=== PATIENT | male | born 1990 | race Caucasian/White ===

== ENCOUNTER 2022-05-08 11:13 | Emergency (ER) | payer OTHER, SELFPAY ==
[2022-05-08 11:24] VITALS: BP 138/77; PULSE 72; RESP 18; TEMP 36.8; O2SAT 97; BMI 32.5
--- NOTE | 2022-05-08 11:34 | ED_ITS ---
HPI - Ear Problem General Chief complaint: Ear Stated complaint: ear pain, soar throat Time Seen by Provider: 05/08/22 11:29 Source: patient Mode of arrival: Ambulatory History of Present Illness HPI Narrative: 31-year-old male daily smoker with noncontributory medical history presents with a chief complaint of severe left ear pain and some mild throat pain. He denies any runny nose, sneezing or cough. He has no chest pain or shortness of breath. He is had no nausea, vomiting or diarrhea. He denies any fever. Related Data Previous Rx's Medication Instructions Recorded amoxicillin 875 mg tablet 875 mg PO BID #14 tabs 05/08/22 hydrocodone 5 mg-acetaminophen 325 1 tab PO Q4-6H PRN pain #10 tabs 05/08/22 mg tablet Review of Systems Review of Systems Narrative: GENERAL: See HPI HEENT: See HPI RESPIRATORY: See HPI CARDIOVASCULAR: Denies chest pain, palpitations, orthopnea, edema, GASTROINTESTINAL: Denies nausea, vomiting, abdominal pain, diarrhea, constipation, melena. : Denies dysuria, frequency, incontinence, hematuria, urinary retention. MUSCULOSKELETAL: denies weakness, joint pain, or bony pain SKIN: Denies rash, skin lesions, or other NEUROLOGIC: Denies weakness, headache, numbness, change in speech, confusion, seizures, incoordination. PSYCHIATRIC: No concerning psychosocial issues. 12 point review of systems is negative except for those stated above Patient History Social History Smoking Status: Current every day smoker Smoking Status: Current every day smoker alcohol intake frequency: holidays/special occasions only Substance Use Type: does not use Exam Narrative Exam Narrative: GEN: AOx3 and in mild distress EYES: Pupils are equal, round, and reactive to light and accommodation. Extraoccular muscles are intact bilaterally. There is no subconjunctival hemorrhage or exudate. ENT: Right TM flat, clear with normal landmarks. Left TM bulging, opacified with erythema. No evidence of rupture. Minimal postpharyngeal drainage, no significant erythema, swelling or exudate. No significant anterior lymphadenopathy. Airway clear CHEST: Lungs are clear to auscultation bilaterally and free of wheezes, rales, or rhonchi. Heart rate is regular rhythm, there are no murmurs, clicks, rubs, or gallops. There is no chest wall tenderness. ABD: Abdomen is soft and nontender. There is no guarding or rebound. Bowel sounds are normal in all 4 quadrants. There is no mass or organomegaly. EXT: Full painless ROM of all extremities with no loss of sensation or strength. SKIN: Warm, pink, and dry. No erythema or rash Initial Vital Signs Initial Vital Signs: Vital Signs Temperature 98.2 F 05/08/22 11:24 Pulse Rate 72 05/08/22 11:24 Respiratory Rate 18 05/08/22 11:24 Blood Pressure 138/77 05/08/22 11:24 Pulse Oximetry 97 05/08/22 11:24 Oxygen Delivery Method 05/08/22 11:24 Course Vital Signs Vital signs: Vital Signs - 8 hr 05/08/22 11:24 Temperature 98.2 F Pulse Rate 72 Respiratory Rate 18 Blood Pressure 138/77 Pulse Oximetry 97 Oxygen Delivery Method Room Air Discharge Plan Departure Patient Disposition: Home Clinical Impression: Otitis media Instructions: Middle Ear Infection Activity Restrictions/Additional Instructions: *You have been diagnosed with [acute left otitis media] *What to do: *Please considered the routine use of ibuprofen for the next few days to help with pain, fever and inflammation. Also, as we discussed [id number] medications that include a decongestant will likely help, particularly prior to your flight tomorrow [x ] New medication prescriptions sent to your pharmacy: [[facility] in [place] ] [ ] New medication written as a paper prescription [ ] No new medications given *Please follow up with your primary care provider in 2-3 days, call for an appointment. Let them know you were seen in the Emergency Department and that we ask that you be seen in follow up. We will electronically transmit a record of today's note if your PCP is in our system * as we discussed, you have a significant amount of bulging of your tympanic membrane and you are at an increased risk of rupture, if you developed significantly worsening pain followed by drainage of blood or pus from your ear this would suggest it likely ruptured. It is quite normal for the pain to improved dramatically at this point. If this does happen it is very important that you follow-up with [facility], their contact info is listed below, please call them and let them know you were seen in the emergency department and we would like you to be seen in follow-up *Return to Emergency Department if you should have any new, worsening or concerning symptoms, such as [fever greater than 101 F, shaking chills, worsening pain, persistent vomiting or other bothersome symptoms] You have been prescribed a short course of narcotic medications. These are potentially dangerous and addictive medications that should be used carefully. While on these medications you cannot drive or operate heavy machinery. Additionally, you cannot sign legal documents or perform any duties such as this. 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 Please understand that we cannot provide further refills of narcotics or controlled substances through the ED and your pain management will need to be through your Primary Care Provider Prescriptions: New hydrocodone-acetaminophen 5-325 mg tablet 1 tab PO Q4-6H PRN (Reason: pain) Qty: 10 0RF amoxicillin 875 mg tablet 875 mg PO BID Qty: 14 0RF Referrals: Thomas Parr MD [Physician] -
== END 2022-05-08 11:35 | disposition home or self-care (01) ==
PROVIDERS: Emergency Provider Emergency Medicine
DX: H66.92 Otitis media, unspecified, left ear (principal)
CPT/HCPCS: 99281

== ENCOUNTER 2022-08-14 09:08 | Emergency (ER) | payer OTHER, SELFPAY ==
[2022-08-14 09:19] VITALS: BP 146/92; PULSE 78; RESP 16; TEMP 37.2; O2SAT 99; BMI 33.2
--- NOTE | 2022-08-14 09:25 | ED.EAR ---
HPI - Ear Problem General Chief complaint: Ear Stated complaint: possible ear infection Time Seen by Provider: 08/14/22 09:18 Source: patient Mode of arrival: Family Vehicle History of Present Illness HPI Narrative: Patient is a healthy 32-year-old male who presents with left ear pain. He says he is had some difficulty with popping ears for about the last month he feels like his ears are full. No significant nasal congestion or sore throat. He is not had any fever or chills. He took Sudafed without any relief. Related Data Home Medications Medication Instructions Recorded Confirmed No Known Home Medications 08/14/22 08/14/22 Allergies Allergy/AdvReac Type Severity Reaction Status Date / Time No Known Drug Allergies Allergy Verified 08/14/22 09:24 Review of Systems Review of Systems ROS Unobtainable: All systems reviewed & are unremarkable except as noted in HPI and below Patient History Social History Smoking Status: Current every day smoker Smoking Status: Current every day smoker tobacco type: cigarettes alcohol intake frequency: holidays/special occasions only Substance Use Type: does not use Exam Initial Vital Signs Initial Vital Signs: Vital Signs Temperature 98.9 F 08/14/22 09:19 Pulse Rate 78 08/14/22 09:19 Respiratory Rate 16 08/14/22 09:19 Blood Pressure 146/92 H 08/14/22 09:19 Pulse Oximetry 99 08/14/22 09:19 Oxygen Delivery Method Room Air 08/14/22 09:19 GENERAL: Well-appearing, well-nourished and in no acute distress. EARS: Both right and left ear have normal external exam normal canal no erythema no fluid behind membrane tympanic membrane visualized bilaterally CARDIOVASCULAR: peripheral pulses in tact, cap refill <2 sec RESPIRATORY: No respiratory distress, speaks in full sentences without difficulty EXTREMITIES: Normal range of motion, no clubbing or edema. Neurovascularly intact NEUROLOGICAL: Cranial nerves II through XII grossly intact. Normal gait and speech. SKIN: Warm, dry, no petechiae, no rashes or lesions. Course Vital Signs Vital signs: Vital Signs - 8 hr 08/14/22 09:19 Temperature 98.9 F Pulse Rate 78 Respiratory Rate 16 Blood Pressure 146/92 H Pulse Oximetry 99 Oxygen Delivery Method Room Air Medical Decision Making [facility] Narrative Medical decision making narrative: Patient has been having ear pain and popping ongoing for the last month. No sign of infection he is not febrile. Recommended allergy medicine or Sudafed which he has not had much relief with. No need for antibiotics may need ENT evaluation if this continues. Discharge Plan Departure Patient Disposition: Home Clinical Impression: Earache Instructions: DI for Ear Pain-Adult Activity Restrictions/Additional Instructions: *You have been diagnosed with ear pain *What to do: At this time no infection no antibiotics. May try allergy medication daily unfortunately no good answer. You may need to go to a specialist if discontinue *Continue to take medications as directed *Follow up with your primary care provider in 2-3 days or call [phone] Parr *Return to ER if you should have increasing pain fever drainage [or] any new, worsening or concerning symptoms Prescriptions: No Action No Known Home Medications Referrals: Thomas Parr MD [Physician] - Stand Alone Forms: Patient Portal/API
== END 2022-08-14 09:29 | disposition home or self-care (01) ==
PROVIDERS: Emergency Provider Emergency Medicine
DX: H92.02 Otalgia, left ear (principal)
CPT/HCPCS: 99281

== ENCOUNTER 2023-04-11 03:37 | Emergency (ER) | payer OTHER, SELFPAY ==
--- NOTE | 2023-04-11 03:41 | ED_ITS ---
HPI - General Adult General Chief complaint: Extremity Problem,Nontraumatic Stated complaint: rt should blade feels like its being stabbed Time Seen by Provider: 04/11/23 03:40 History of Present Illness HPI narrative: 32-year-old gentleman with no significant medical history he is a smoker with a chronic smoker's cough presents with a week to week and a half of right-sided subscapular pain worse with moving, deep breathing an unchanged with eating, fasting. He has been taking appropriate doses of both ibuprofen and Tylenol and this evening found that the pain woke him up a number of times this evening. He does not report fevers recent viral syndrome, abdominal pain, nausea or vomiting. He is having no left-sided chest pain or palpitations. He describes no dizziness. He does not note that he had been doing any particularly new activities or anything that may have caused any muscle tenderness or particularly weakness Related Data Previous Rx's Medication Instructions Recorded prednisone 20 mg tablet 20 mg PO DAILY #5 tabs 04/11/23 Allergies Allergy/AdvReac Type Severity Reaction Status Date / Time No Known Drug Allergies Allergy Verified 08/14/22 09:24 Review of Systems Review of Systems Narrative: Pertinent positive and negative findings as per HPI Patient History Social History Smoking Status: Current every day smoker Smoking Status: Current every day smoker tobacco type: cigarettes alcohol intake frequency: holidays/special occasions only Substance Use Type: does not use Exam Initial Vital Signs Initial Vital Signs: Vital Signs Temperature 98.3 F 04/11/23 03:48 Pulse Rate 82 04/11/23 03:48 Respiratory Rate 20 04/11/23 03:48 Blood Pressure 141/85 H 04/11/23 03:48 Pulse Oximetry 98 04/11/23 03:48 Oxygen Delivery Method Room Air 04/11/23 03:48 General: Healthy appearing, in no acute distress. Able to give a complete and coherent history. Well-nourished well-developed HEENT: Moist mucous membranes, normal sclera with reactive pupils, Respiratory: Lungs are clear to auscultation, no wheezing no rales no rhonchi. Full and symmetrical air movement Chest: He has no reproducible tenderness with manipulation of the right scapula or palpation along the anterior-posterior chest wall. No tenderness along sternal borders Cardiac: Regular rate and rhythm no murmurs no bruits Abdomen: Soft, nontender, no reproducible pain with abdominal palpation, good bowel tones, no flank pain Skin: Warm and dry, no rashes Neurologic: Grossly neurologically intact with no obvious asymmetries or abnormalities Extremities: No trauma, well perfused Psych: Cooperative, appropriate insight and affect Course Orders Ordered: ED Orders 04/11/23 03:47 XR chest 2V Stat Vital Signs Vital signs: Vital Signs - 8 hr 04/11/23 03:48 Temperature 98.3 F Pulse Rate 82 Respiratory Rate 20 Blood Pressure 141/85 H Pulse Oximetry 98 Oxygen Delivery Method Room Air Medical Decision Making MDM Narrative Medical decision making narrative: CC: Right-sided subscapular pain times 1-1.5 weeks Complicating co-morbidities: Smoking Data collected from: patient, Differential considered: Pneumonia, pneumothorax, pleuritic chest pain, musculoskeletal chest pain Exam documented above, pertinent findings include: Benign exam with no reproducible chest pain with palpation in the thorax or abdomen. No skin changes. Imaging studies independently reviewed: Chest x-ray shows no acute findings Treatments: 60 mg of oral prednisone Discussion: 32-year-old gentleman who presents with a week to week and a half of musculoskeletal type chest pain centered under his right scapula worse with movement twisting and turning. Coughing and sneezing do make it worse. There is no left-sided chest pain, no subcutaneous air, no no rash and no reproducible tenderness with palpation. Chest x-ray does not suggest spontaneous pneumothorax, tumor, mass, consolidated findings are pneumonia, no widened mediastinum. At this point with pain very likely musculoskeletal there is no additional indication for lab work or further imaging studies. I do not suspect pulmonary embolism in the absence of hypoxia and tachycardia. Patient had taken 800 mg of ibuprofen and 1 g of Tylenol just prior to arrival. He has been taking this fairly regularly. On top of this I do not think that Toradol is going to offer any additional benefit. He declined any narcotics for immediate use or home use. We talked about a brief course of steroids as an anti- inflammatory. He is given 60 mg of prednisone in the ER and will have him take an additional 5 days of 20 mg of prednisone. Reviewed reasons to return to the emergency department, questions are answered and he is safe for discharge Discharge Plan Departure Patient Disposition: Home Clinical Impression: Chest pain, musculoskeletal Instructions: DI for Musculoskeletal Pain Activity Restrictions/Additional Instructions: Thank you for coming in today Based on the description of your pain, your physical exam and a very normal chest x-ray I suspect that you are experiencing musculoskeletal pain that should improve within the next few days. Using 400 mg of ibuprofen (2 [id number] pills) and 1 Tylenol every 6 hours can be very helpful in controlling pain. I am going to suggest 5 days of prednisone as a anti-inflammatory treatment. You are given 1st dose in the emergency department. I am not finding any suggestion of a collapsed lung, a tumor or mass, pneumonia, shingles, heart attack or heart attack like syndrome, abdominal complications that are causing chest pain. If you find that you are developing new symptoms, develop a fever the pain worsens it would be appropriate to return to the ER Prescriptions: New prednisone 20 mg tablet 20 mg PO DAILY Qty: 5 0RF Stand Alone Forms: Patient Portal/API
--- NOTE | 2023-04-11 03:47 | DI.RAD.S_ITS ---
PROCEDURE: XR CHEST 2V INDICATIONS: right mid chest pain TECHNIQUE: 2 views of the chest were acquired. COMPARISON: None. FINDINGS: Surgical changes and devices: None. Lungs and pleura: Lungs are clear. No pleural effusions or pneumothorax. Mediastinum: Mediastinal contours are normal. Heart size is normal. Bones and chest wall: No suspicious bony abnormalities. Soft tissues appear unremarkable. IMPRESSION: No acute cardiopulmonary abnormality. This report is concordant with the overnight preliminary interpretation. Dictated by: Demarcus Kemp M.D. on 04/11/2023 at 7:57 Approved by: Demarcus Kemp M.D. on 04/11/2023 at 7:58
[2023-04-11 03:48] VITALS: BP 141/85; PULSE 82; RESP 20; TEMP 36.8; O2SAT 98; BMI 34.0
[2023-04-11] MEDS: predniSONE 20 MG TABLET 60 MG PO (05:17)
[2023-04-11 05:21] VITALS: BP 138/76; PULSE 74; RESP 18; TEMP 36.6; O2SAT 98
== END 2023-04-11 05:22 | disposition home or self-care (01) ==
PROVIDERS: Emergency Provider Emergency Medicine
DX: R07.89 Other chest pain (principal)
CPT/HCPCS: 71046; 99283

== ENCOUNTER 2023-09-21 10:01 | Emergency (ER) | payer OTHER, SELFPAY ==
[2023-09-21 10:14] VITALS: BP 134/78; PULSE 69; RESP 14; TEMP 36.2; O2SAT 98; BMI 33.2
--- NOTE | 2023-09-21 10:16 | DI.RAD.S_ITS ---
PROCEDURE: XR FOOT RT MIN 3V INDICATIONS: foot/toe injury TECHNIQUE: 3 views of the foot were acquired. COMPARISON: None. FINDINGS: Bones: Mildly displaced fracture at the base of the 1st distal phalanx with intra-articular extension. No suspicious bony lesions. Soft tissues: No tibiotalar joint effusion. Achilles tendon appears normal. IMPRESSION: Mildly displaced fracture at the base of the 1st distal phalanx with intra-articular extension. Dictated by: Rodo Ayoub M.D. on 09/21/2023 at 11:05 Approved by: Rodo Ayoub M.D. on 09/21/2023 at 11:06
--- NOTE | 2023-09-21 12:13 | ED.LOWEXIN ---
HPI - Extremity Injury (Lower) General Chief Complaint: Extremity Injury, Lower Stated Complaint: poss broken big toe or top of foot Time Seen by Provider: 09/21/23 12:05 Source: patient Mode of arrival: Ambulatory History of Present Illness HPI Narrative: Patient here for right great toe pain/injury. He bumped piece of wood on the playground yesterday playing with his kids. Has been limping since the injury. Denies any other injuries. Shoe and sock removed. Related Data Previous Rx's Medication Instructions Recorded prednisone 20 mg tablet 20 mg PO DAILY #5 tabs 04/11/23 Allergies Allergy/AdvReac Type Severity Reaction Status Date / Time No Known Drug Allergies Allergy Verified 09/21/23 10:14 Review of Systems Review of Systems Narrative: GENERAL: negative chills, fatigue, malaise, fever, sweats. HEENT: negative sinus pain, ear pain, sore throat RESPIRATORY: negative dyspnea, cough CARDIOVASCULAR: negative chest pain, palpitations GASTROINTESTINAL: negative nausea, vomiting, abdominal pain : negative dysuria, frequency, hematuria MUSCULOSKELETAL: Positive muscle or bony pain SKIN: negative rash, skin lesions NEUROLOGIC: negative weakness, numbness ROS Unobtainable: All systems reviewed & are unremarkable except as noted in HPI and below Patient History Social History Smoking Status: Current every day smoker Smoking Status: Current every day smoker tobacco type: cigarettes alcohol intake frequency: holidays/special occasions only Substance Use Type: does not use Exam Narrative Exam Narrative: GENERAL: in no distress, not toxic not dyspneic HEAD: Normocephalic. EYES: Pupils equal round EXTREMITIES: No gross deformities. Examination right foot. There is bruising to the interphalangeal joint dorsally. Skin is intact. No subungual hematoma. Tender to touch. Brisk cap refills. Strong pedal pulse. Remaining exam of the foot warm soft and pink. Nontender ankle NEURO: AOx4. SKIN: Warm and dry PSYCH: Not anxious, is cooperative Initial Vital Signs Initial Vital Signs: Vital Signs Temperature 97.1 F L 09/21/23 10:14 Pulse Rate 69 09/21/23 10:14 Respiratory Rate 14 09/21/23 10:14 Blood Pressure 134/78 09/21/23 10:14 Pulse Oximetry 98 09/21/23 10:14 Oxygen Delivery Method Room Air 09/21/23 10:14 Course Orders Ordered: Discontinued Medications Ibuprofen (Ibuprofen 400 Mg Tablet) 800 mg PO NOW ONE Stop: 09/21/23 12:14 Last Admin: 09/21/23 12:22 Dose: 800 mg Documented By: ARIANNA Vital Signs Vital signs: Vital Signs - 8 hr 09/21/23 10:14 Temperature 97.1 F L Pulse Rate 69 Respiratory Rate 14 Blood Pressure 134/78 Pulse Oximetry 98 Oxygen Delivery Method Room Air [facility] - Extremity Injury (Lower) [facility] Narrative Medical decision making narrative: Patient here for right great toe pain/injury. He bumped piece of wood on the playground yesterday playing with his kids. Has been limping since the injury. Denies any other injuries. Shoe and sock removed. After history and exam x-ray right foot ibuprofen [facility] Medical records reviewed: No recent visit for this complaint Differential considered: Includes but not limited to toe fracture toe dislocation toe sprain Imaging studies independently reviewed: X-ray right foot fracture of the distal phalanx of the great toe Treatments: Postop shoe crutches ibuprofen Re-evaluations: Reviewed results with patient. Referral for Orthopedics provided. Pain is controlled. Work note provided. Informed patient will need to keep in postop shoe and crutches until office appointment time. Pain is controlled. Return precautions reviewed he desires discharge home Discussion: Appropriate for discharge home. Exam is reassuring. Referral for Orthopedics provided. Pain is controlled. Work note provided. He desires discharge home. Reviewed with patient treatment definitively will be needed to be reviewed with orthopedist Diagnosis: Toe fracture Discharge Plan Departure Patient Disposition: Home Clinical Impression: Closed fracture of toe Qualifiers: Encounter type: initial encounter Toe: great toe Phalanx: distal Fracture alignment: displaced Laterality: right Qualified Code(s): S92.421A - Displaced fracture of distal phalanx of right great toe, initial encounter for closed fracture Instructions: DI for Toe Fracture Activity Restrictions/Additional Instructions: X-rays showed that you do have a broken toe. Please use crutches and provided postop shoe until office appointment time. Work note has been provided for you. Please elevate foot and toe when at rest to reduce swelling. May continue ibuprofen for pain. May use cool pack to the toe 20 minutes at a time as needed for pain and swelling. Return if worse if any questions or concerns Prescriptions: No Action prednisone 20 mg tablet 20 mg PO DAILY Qty: 5 0RF Referrals: Janae Meeks MD [Physician] - Stand Alone Forms: Patient Portal/API, Work Release Note
[2023-09-21] MEDS: IBUPROFEN 400 MG TABLET 800 MG PO (12:22)
[2023-09-21 12:32] VITALS: BP 139/71; PULSE 69; RESP 16; O2SAT 97
== END 2023-09-21 12:32 | disposition home or self-care (01) ==
PROVIDERS: Emergency Provider Emergency Medicine
DX: S92.421A Displaced fracture of distal phalanx of right great toe, initial encounter for closed fracture (principal); W22.8XXA Striking against or struck by other objects, initial encounter
CPT/HCPCS: 73630; 99283

== ENCOUNTER 2024-09-28 09:34 | Emergency (ER) | payer OTHER, SELFPAY ==
[2024-09-28 09:37] VITALS: BP 120/68; PULSE 57; RESP 14; TEMP 36.1; O2SAT 100; BMI 28.8
--- NOTE | 2024-09-28 09:40 | DI.RAD.S_ITS ---
PROCEDURE: XR SHOULDER RT MIN 2V INDICATIONS: shoulder pain TECHNIQUE: 3 views of the shoulder were acquired. COMPARISON: None. FINDINGS: Bones: No fractures or dislocations. No suspicious bony lesions. Visualized ribs appear intact. Soft tissues: No suspicious soft tissue calcifications. IMPRESSION: No visualized acute fracture or dislocation. However, if clinical concern and/or pain persist, short interval imaging followup in 7-10 days is recommended, as occult injury cannot be definitively excluded. Dictated by: Brenda Ortiz M.D. on 09/28/2024 at 11:57 Approved by: Brenda Ortiz M.D. on 09/28/2024 at 11:57
--- NOTE | 2024-09-28 11:31 | ED.EXTPRO ---
HPI - Extremity Problem <Jossy Carpio PA-C - Last Filed: 09/28/24 14:16> General Chief complaint: Extremity Problem,Nontraumatic Stated complaint: Right shoulder pain x 3 days Time Seen by Provider: 09/28/24 11:09 Source: patient Mode of arrival: Ambulatory History of Present Illness HPI Narrative: Mr. Carter is a very pleasant 34-year-old male with no reported past medical history who presents to the emergency department for acute on chronic right shoulder pain x3 days. 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 Describes that he has pain on his right anterior and lateral shoulder and also it is now spreading onto his right scapula and up the right side of the neck. The muscles feel tight. Denies any specific injury but he does work with his arms every day. States that in the past he was prescribed prednisone for this pain which helped immensely. He does have a standing referral to see an orthopedic doctor but is not yet been able to follow up. He denies any neck pain, head pain, arm pain, numbness, tingling, weakness. Pain is exacerbated by abducting the right shoulder and raising the arm above the head but he still does have full range of motion. He took Tylenol this morning which did not help with the pain at all. He takes no prescription medications. He does smoke cigarettes. Related Data Previous Rx's Medication Instructions Recorded prednisone 20 mg tablet 20 mg PO DAILY #5 tabs 04/11/23 lidocaine 5 % topical patch 1 patch topical DAILY #30 ea 09/28/24 (Lidoderm) methocarbamol 500 mg tablet 500 mg PO TID PRN muscle spasm #20 09/28/24 tabs prednisone 20 mg tablet 20 mg PO DAILY 5 days #5 tabs 09/28/24 Allergies Allergy/AdvReac Type Severity Reaction Status Date / Time No Known Drug Allergies Allergy Verified 09/28/24 09:37 Review of Systems <oJssy Carpio PA-C - Last Filed: 09/28/24 14:16> Review of Systems ROS Unobtainable: All systems reviewed & are unremarkable except as noted in HPI and below Patient History <Jossy Carpio PA-C - Last Filed: 09/28/24 14:16> Social History Smoking Status: Current every day smoker Smoking Status: Current every day smoker tobacco type: cigarettes alcohol intake frequency: holidays/special occasions only Exam <JAGUAR Villasenor Last Filed: 09/28/24 14:16> Narrative Exam Narrative: GENERAL: 34 year old patient appears stated age. Well-developed patient, in no acute distress. HEAD: Atraumatic. Normocephalic. NECK: Trachea midline. Cervical ROM intact. No midline cervical tenderness. CARDIOVASCULAR: Regular rate and rhythm. RESPIRATORY: ?Nonlabored respirations. ?Speaking in clear, full sentences. ?Clear to auscultation. Breath sounds equal bilaterally. No wheezes, rales, or rhonchi. ? EXTREMITIES: No tenderness to palpation of right clavicle, shoulder, scapula. There is reproducible pain with abduction of the right shoulder both active and passive in addition to flexion and extension of the right shoulder. Patient does have full range of motion. No deformities. Strength and sensation are intact in the distribution of the median, ulnar, radial nerves bilaterally and there strong radial pulses bilaterally. Negative empty can test bilaterally. BACK: Nontender. NEURO: AOx3. ?Clear speech. ?Moves all 4 extremities appropriately. SKIN: No rash or erythema of visible areas Initial Vital Signs Initial Vital Signs: Vital Signs Temperature 97.0 F L 09/28/24 09:37 Pulse Rate 57 L 09/28/24 09:37 Respiratory Rate 14 09/28/24 09:37 Blood Pressure 120/68 09/28/24 09:37 Pulse Oximetry 100 09/28/24 09:37 Oxygen Delivery Method Room Air 09/28/24 09:37 <Brittnee Carrillo DO - Last Filed: 09/29/24 08:06> Initial Vital Signs Initial Vital Signs: Vital Signs Temperature 97.0 F L 09/28/24 09:37 Pulse Rate 57 L 09/28/24 09:37 Respiratory Rate 14 09/28/24 09:37 Blood Pressure 120/68 09/28/24 09:37 Pulse Oximetry 100 09/28/24 09:37 Oxygen Delivery Method Room Air 09/28/24 09:37 Course <Jossy Carpio PA-C - Last Filed: 09/28/24 14:16> Orders Ordered: Discontinued Medications Ketorolac Tromethamine (Ketorolac 30 Mg/Ml Vial) 30 mg IM NOW ONE Stop: 09/28/24 11:31 Last Admin: 09/28/24 11:40 Dose: 30 mg Documented By: RB Lidocaine (Lidocaine 5% Patch) 1 each TOP NOW ONE Stop: 09/28/24 11:31 Last Admin: 09/28/24 11:40 Dose: 1 each Documented By: RB Prednisone (Prednisone 20 Mg Tablet) 40 mg PO NOW ONE Stop: 09/28/24 11:31 Last Admin: 09/28/24 11:41 Dose: 40 mg Documented By: RB Vital Signs Vital signs: Vital Signs - 8 hr 09/28/24 09:37 09/28/24 12:38 Temperature 97.0 F L 97.8 F Pulse Rate 57 L 52 L Respiratory Rate 14 18 Blood Pressure 120/68 129/62 Pulse Oximetry 100 99 Oxygen Delivery Method Room Air Room Air <Brittnee Carrillo DO - Last Filed: 09/29/24 08:06> Orders Ordered: Discontinued Medications Ketorolac Tromethamine (Ketorolac 30 Mg/Ml Vial) 30 mg IM NOW ONE Stop: 09/28/24 11:31 Last Admin: 09/28/24 11:40 Dose: 30 mg Documented By: RB Lidocaine (Lidocaine 5% Patch) 1 each TOP NOW ONE Stop: 09/28/24 11:31 Last Admin: 09/28/24 11:40 Dose: 1 each Documented By: RB Prednisone (Prednisone 20 Mg Tablet) 40 mg PO NOW ONE Stop: 09/28/24 11:31 Last Admin: 09/28/24 11:41 Dose: 40 mg Documented By: RB Vital Signs Vital signs: Vital Signs - 8 hr 09/28/24 09:37 09/28/24 12:38 Temperature 97.0 F L 97.8 F Pulse Rate 57 L 52 L Respiratory Rate 14 18 Blood Pressure 120/68 129/62 Pulse Oximetry 100 99 Oxygen Delivery Method Room Air Room Air MDM - Extremity (Nontraumatic) <Jossy Carpio PA-C - Last Filed: 09/28/24 14:16> Medical Records Attestation: I reviewed the patient's medical records. Imaging Data Right Shoulder X-ray: Radiologist's Impression: PROCEDURE: XR SHOULDER RT MIN 2V INDICATIONS: shoulder pain TECHNIQUE: 3 views of the shoulder were acquired. COMPARISON: None. FINDINGS: Bones: No fractures or dislocations. No suspicious bony lesions. Visualized ribs appear intact. Soft tissues: No suspicious soft tissue calcifications. IMPRESSION: No visualized acute fracture or dislocation. However, if clinical concern and/or pain persist, short interval imaging followup in 7-10 days is recommended, as occult injury cannot be definitively excluded. Dictated by: Brenda Ortiz M.D. on 09/28/2024 at 11:57 Approved by: Brenda Ortiz M.D. on 09/28/2024 at 11:57 [facility] Narrative Medical decision making narrative: 34-year-old male with no reported past medical history who presents to the emergency department for acute on chronic right shoulder pain x3 days. Differential diagnosis includes but is not limited to right rotator cuff injury, shoulder arthritis, muscle strain, muscle spasm, etc. On exam patient is in no acute distress, nontoxic appearing, vital signs appropriate. He has anterior and lateral right shoulder pain extending into the right superior trapezius muscle. This pain is exacerbated with range of motion of the shoulder but range of motion is still intact. His extremities are neurovascularly intact. Right shoulder x-ray obtained in triage, we will treat pain with Toradol and lidocaine patch, patient reports pain resolved in the past with prednisone so we will also treat with a short course of this. Will prescribe muscle relaxers for home, discussed risks of muscle relaxers. Right shoulder x-ray reveals no acute bony abnormalities. Suspect possible chronic rotator cuff injury or soft tissue injury at this time. We will treat patient with prednisone, Robaxin, Lidoderm in addition [id number] ibuprofen and acetaminophen, discussed risks of NSAIDs and steroids use together. Advised patient follow up with PCP and follow up with ortho for his right shoulder pain, he already has a standing referral. We discussed ED return precautions. He verbalized understanding of all information is agreeable to plan. He is stable for discharge home. Discharge Plan Departure Patient Disposition: Home Clinical Impression: Acute pain of right shoulder Instructions: DI for Shoulder Pain Activity Restrictions/Additional Instructions: Dear Mr. Englishck, Thank you for coming to the emergency department. Today you were evaluated for right shoulder pain. Your x-ray did not reveal any acute bony abnormalities, at this time I am concerned your pain is related to the muscles and soft tissues of the right shoulder. Please rest, complete the full course of prescribed steroids, use the prescribed muscle relaxers lidocaine patches as needed, in addition to [id number] ibuprofen and acetaminophen. Please follow up with the primary care doctor who may recommend that you see an orthopedic surgeon for further evaluation. Please take Ibuprofen (Motrin/Advil) or Acetaminophen (Tylenol) for pain. These are available over the counter. You may take Ibuprofen 600 mg every 8 hours with food for pain. You may also take Acetaminophen 650 mg every 4-6 hours for pain. Do not exceed 3000 mg of Tylenol a day as this can cause liver damage. Do not drink alcohol with either of these medications. Please use RICE therapy for your pain in addition to ibuprofen/acetaminophen. Rest the painful area. Ice the area of pain/swelling for at least 15 minutes, 4x a day. Compress the area of swelling using a brace, wrap, or splint if applied. Elevate the painful or swollen extremity by supporting it above the level of the heart with pillows when sitting or laying. Please be aware that muscle relaxers can make you drowsy so he should not take them if driving a car or operating heavy machinery. Please follow up with your primary care doctor within the next 2-3 days for ER follow-up. (If you do not have a PCP you can call [phone]. ?to schedule an appointment with an [facility] Primary Care Provider) IF YOU DEVELOP ANY NEW OR WORSENING SYMPTOMS, RETURN TO THE ER! Please read the attached instructions, they highlight more specific treatments and interventions for you at home. Thank you for letting me participate in your care, Jossy Carpio PA-C Prescriptions: New prednisone 20 mg tablet 20 mg PO DAILY 5 Days Qty: 5 0RF methocarbamol 500 mg tablet 500 mg PO TID PRN (Reason: muscle spasm) Qty: 20 0RF Rx Instructions: Can take 500mg (1 tab) - 1,000mg (2 tabs) per dose lidocaine [Lidoderm] 5 % adhesive patch,medicated 1 patch topical DAILY Qty: 30 0RF Rx Instructions: leave on most painful area for up to 12 hrs No Action prednisone 20 mg tablet 20 mg PO DAILY Qty: 5 0RF Referrals: ProviderAnnelise [Primary Care Provider] - Stand Alone Forms: Patient Portal/API/Survey ED Sign-out <Brittnee Carrillo DO - Last Filed: 09/29/24 08:06> Cosign ED Attending Cosignature Attestation: I was available for consultation.
[2024-09-28] MEDS: KETOROLAC 30 MG/ML VIAL IM (11:40)
[2024-09-28] MEDS: LIDOCAINE 5% PATCH 1 EACH TOP (11:40)
[2024-09-28] MEDS: predniSONE 20 MG TABLET 40 MG PO (11:41)
[2024-09-28 12:38] VITALS: BP 129/62; PULSE 52; RESP 18; TEMP 36.6; O2SAT 99
== END 2024-09-28 12:38 | disposition home or self-care (01) ==
PROVIDERS: Emergency Provider Physician Assistant
DX: M25.511 Pain in right shoulder (principal)
CPT/HCPCS: 73030; 96372; 99283; 99284; J1885

== ENCOUNTER 2025-05-02 07:52 | Emergency (ER) | payer OTHER, SELFPAY ==
[2025-05-02 08:08] VITALS: BP 128/69; PULSE 79; RESP 16; TEMP 36.9; O2SAT 98; BMI 28.3
--- NOTE | 2025-05-02 08:10 | ED_ITS ---
HPI - General Adult General Chief complaint: Wound/Laceration Stated complaint: Cut on right Index finger a day ago Time Seen by Provider: 05/02/25 08:09 Source: patient and RN notes reviewed Mode of arrival: Ambulatory Limitations: no limitations History of Present Illness HPI narrative: 34-year-old male uses tobacco no reported medical issues who presents with complaint of laceration to the right index finger over the middle interphalangeal joint. Patient states he was cut with a kitchen knife that he has been using on some dirty dishes. Patient states that he went to the walk-in clinic he states they wiped it off but did not irrigated he had not washed it out. Dermabond was placed over the site. He denies any dehiscence but that has developed some increasing swelling and redness pain throughout the finger. He denies fevers or chills. No other systemic symptoms. No nausea or vomiting. Does have some discomfort with flexion. Patient states has discomfort throughout the finger. He has not had any drainage. Denies any other injuries. Does use tobacco daily, occasional alcohol, no recreational drugs reported. Patient states no daily medications. No known drug allergies. Related Data Previous Rx's ?Medication ?Instructions ?Recorded prednisone 20 mg tablet 20 mg PO DAILY #5 tabs 04/11 lidocaine 5 % topical patch 1 patch topical DAILY #30 ea 09/28/24 (Lidoderm) methocarbamol 500 mg tablet 500 mg PO TID PRN muscle s pasm #20 09/28/24 tabs clindamycin HCl 300 mg capsule 300 mg PO Q6H #40 caps 05/02/25 Allergies Allergy/AdvReac Type Severity Reaction Status Date / Time No Known Drug Allergies Allergy Verified 09/28/24 09:37 Review of Systems Review of Systems ROS Unobtainable: All systems reviewed & are unremarkable except as noted in HPI and below Patient History tobacco type: cigarettes alcohol intake frequency: holidays/special occasions only Exam Narrative Exam Narrative: GENERAL: Alert and oriented x three, male in mild distress HEENT: Head normocephalic, atraumatic, EOMI, pupils reactive, face symmetric, moist mucous membranes NECK: Supple, full range of motion CARDIOVASCULAR: Regular rate and rhythm without murmurs, rubs or gallops. RESPIRATORY: Breath sounds equal bilaterally, no wheezes rales or rhonchi. ABDOMEN: Soft, nontender. Normoactive bowel sounds all 4 quadrants. No guarding or rebound, rigidity, no mass EXTREMITIES: Normal range of motion, patient has some mild edema throughout the 2nd finger, has appears to be a healing laceration over the middle interphalangeal joint of the 2nd finger on the right hand there does not appear to be some Dermabond over the site appears clean and intact without any drainage. There some generalized redness to the finger with some slight swelling. Patient can flex and extend no tenderness over the palmar side of the finger or hand. No fusiform digit. Patient does not have any tenderness over the palmar side of the hand erythema does not extend into the hand. Cap refills less than 2 seconds in all 5 fingers with 2+ radial pulse. Neurovascularly intact NEUROLOGICAL: Cranial nerves II through XII grossly intact. Moving all extremities SKIN: Warm, dry, no petechiae, no rashes or lesions. Initial Vital Signs Initial Vital Signs: Vital Signs Temperature 98.4 F 05/02/25 08:08 Pulse Rate 79 05/02/25 08:08 Respiratory Rate 16 05/02/25 08:08 Blood Pressure 128/69 05/02/25 08:08 Pulse Oximetry 98 05/02/25 08:08 Oxygen Delivery Method Room Air 05/02/25 08:08 Course Orders Ordered: ED Orders 05/02/25 08:19 XR finger RT min 2V Stat Discontinued Medications Clindamycin HCl (Clindamycin 150 Mg Capsule) 300 mg PO NOW ONE Stop: 05/02/25 08:20 Last Admin: 05/02/25 08:35 Dose: 300 mg Diphtheria/Tetanus/Acell Pertussis (Tet,Diph,Pertuss(Acell),Vac/Pf 0.5 Ml Syringe) 0.5 ml IM .ONCE ONE Stop: 05/02/25 08:21 Last Admin: 05/02/25 08:36 Dose: Not Given Vital Signs Vital signs: Vital Signs - 8 hr 05/02/25 08:08 Temperature 98.4 F Pulse Rate 79 Respiratory Rate 16 Blood Pressure 128/69 Pulse Oximetry 98 Oxygen Delivery Method Room Air Medical Decision Making [facility] Narrative Medical decision making narrative: X-ray right finger, deep laceration of the tip of the finger extending of the bone is a adjacent cleft in the distal tuft of the distal phalanx likely posttraumatic presents superimposed infection suggest risk of distal tuft osteomyelitis not evident yet by plain films. Nonemergent finger MRI with and without contrast maybe helpful has been 8 and treatment decisions. Patient offered tetanus immunization but politely refuses and did not have oral antibiotic here in the department. 34-year-old male with laceration to his right index finger was closed with Dermabond. Patient notes was not really rinsed out prior to closure. Suspect patient has develop an infection does not appear to have fluid collection or abscess does not appear to have a flexor tenosynovitis on exam or by history but discussed the risk of this with the patient. We will start oral antibiotic with close follow up. 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 Discharge Plan Departure Patient Disposition: Home Clinical Impression: Laceration of finger with infection Instructions: DI for Wound Infection Activity Restrictions/Additional Instructions: Follow up for recheck in 24-48 hours if no improvement. You can take acetaminophen and/or ibuprofen as needed for discomfort. Your finger does not appear to be developing an infection, please take oral antibiotics until completed. Prescription sent to [facility] in [place]. Return to the emergency department if you develop fevers, rapidly worsening swelling, redness, increasing pain, difficulty or inability to flex your finger or significant increase in pain with extension of your finger, if you are having any drainage from the finger or the laceration, of the laceration opens up or dehiscence. Prescriptions: New clindamycin HCl 300 mg capsule 300 mg PO Q6H Qty: 40 0RF No Action methocarbamol 500 mg tablet 500 mg PO TID PRN (Reason: muscle spasm) Qty: 20 0RF Rx Instructions: Can take 500mg (1 tab) - 1,000mg (2 tabs) per dose lidocaine [Lidoderm] 5 % adhesive patch,medicated 1 patch topical DAILY Qty: 30 0RF Rx Instructions: leave on most painful area for up to 12 hrs prednisone 20 mg tablet 20 mg PO DAILY Qty: 5 0RF Referrals: ProviderAnnelise [Primary Care Provider, Family Practice] Stand Alone Forms: Patient Portal/API
--- NOTE | 2025-05-02 08:19 | DI.RAD.S_ITS ---
PROCEDURE: XR FINGER RT MIN 2V INDICATIONS: laceration R finger, developing infxn TECHNIQUE: AP hand, 2 views of the 2nd finger(s) acquired. COMPARISON: None. FINDINGS: Bones: No fractures or dislocations. There is a cleft in the distal tuft of the distal phalanx of the 2nd finger, subjacent to the laceration. No suspicious bony lesions. Soft tissues: No suspicious soft tissue calcifications. Deep ulceration at the tip of the finger. Soft tissue swelling, 2nd digit. IMPRESSION: There is a deep laceration at the tip of the finger extending to the bone with a subjacent cleft in the distal tuft of the distal phalanx, likely posttraumatic. The presence of superimposed infection suggests that there is a risk of distal tuft osteomyelitis, not yet evident by plain films. Comment: Nonemergent finger MRI with and without contrast may be helpful this would aid in treatment decisions. Dictated by: Shant Arevalo M.D. on 05/02/2025 at 8:56 Approved by: Shant Arevalo M.D. on 05/02/2025 at 9:02
[2025-05-02] MEDS: CLINDAMYCIN 150 MG CAPSULE 300 MG PO (08:35)
== END 2025-05-02 09:14 | disposition home or self-care (01) ==
PROVIDERS: Emergency Provider Emergency Medicine
DX: S61.210A Laceration without foreign body of right index finger without damage to nail, initial encounter (principal); L08.89 Other specified local infections of the skin and subcutaneous tissue; W26.0XXA Contact with knife, initial encounter
CPT/HCPCS: 73140; 96372; 99283